=== PATIENT | female | born 1990 | race Hispanic/Latino ===

== ENCOUNTER 2021-01-14 10:18 | Observation (INO) | payer OTHER, MEDICAID ==
[~2021-01-14] VITALS: Ht 172.7 cm; Wt 94.8 kg
[~2021-01-14 10:18] MED LIST: PNV1TABL17 PO
[2021-01-14 10:19] VITALS: BP 106/69
[2021-01-14 11:16] LABS: APPEARANCE,URINE Cloudy (CLEAR); BILIRUBIN,URINE Negative (NEGATIVE); COLOR,URINE Yellow (YELLOW); GLUCOSE, URINE (UA) Negative (NEGATIVE); KETONES,URINE Negative (NEGATIVE); LEUKOCYTE ESTERASE ,URINE Trace (NEGATIVE); NITRATE,URINE Negative (NEGATIVE); OCCULT BLOOD,URINE Negative (NEGATIVE); PH,URINE 8.5 (5.0-8.0); PROTEIN,URINE Negative (NEGATIVE)
[2021-01-14 11:47] LABS: BACTERIA,URINE Few /HPF (None Seen); RBC,URINE 0-1 /HPF (0-1); WBC,URINE 0-1 /HPF (0-1)
[2021-01-14] MEDS ORDERED: FLUCONAZOLE 100 MG TAB PO SCH (12:00)
== END 2021-01-14 12:40 | disposition home or self-care (01) ==
LOC: EDH 10:18 → LDH 10:19 → WSH 12:19 → LDH 12:40
PROVIDERS: ADMIT Specialist; ATTEND Specialist
DX: O42.913 Preterm premature rupture of membranes, unspecified as to length of time between rupture and onset of labor, third trimester (principal); Z3A.32 32 weeks gestation of pregnancy
CPT/HCPCS: 59025; 81001; G0378; G0379